=== PATIENT | female | born 1985 | race Two or more races ===

== ENCOUNTER 2018-11-22 13:49 | Inpatient (IN) | payer OTHER ==
[2018-11-22 19:33] VITALS: BMI 23.0
--- NOTE | 2018-11-22 21:07 | HP ---
Admitting History and Physical - Primary Care Physician PCP: Rui Guerra - Admission History of Present Illness: 32 years old woman with history Anxiety ?? sz Pseudoseizure Came in for elective admssion for VEEG [place] seziure was one week ago Presneted to [facility] Given Keppra No family hx of seziure History Source: Patient Limitations to Obtaining History: No Limitations - Past Medical History ...LMP: 10/31/18 ...: No - Smoking History Smoking history: Never smoked Have you smoked in the past 12 months: No - Alcohol/Substance Use Hx Alcohol Use: No Home Medications - Allergies Allergies/Adverse Reactions: Allergies Allergy/AdvReac Type Severity Reaction Status Date / Time No Known Allergies Allergy Verified 11/22/18 18:52 Family Medical History Family History: Denies Review of Systems - Review of Systems Neurological: reports: No Symptoms, Dizziness, Headache Physical Examination Vital Signs: Vital Signs Temperature 98.7 F 11/22/18 18:14 Pulse Rate 90 11/22/18 18:14 Respiratory Rate 19 11/22/18 18:14 Blood Pressure 115/70 11/22/18 18:14 O2 Sat by Pulse Oximetry (%) 99 11/22/18 19:37 Constitutional: Yes: Well Nourished Eyes: Yes: WNL Neurological: Yes: Alert, Oriented, Babinski negative, Cran Nerves II-XII Intact ...Motor Strength: WNL Problem List - Problems (1) Epilepsia Assessment/Plan: 1. seziure precautions 2. Ativan prn sz 3 .Trileptal 4. VEEG monitor Code(s): G40.909 - EPILEPSY, UNSP, NOT INTRACTABLE, WITHOUT STATUS EPILEPTICUS
[2018-11-22] MEDS ORDERED: ACETAMINOPHEN 500 MG TABLET (FP) PO PRN (21:08)
[2018-11-22 22:04] LABS: HEMATOCRIT 33.6 % (32.4-45.2); HEMOGLOBIN 11.5 GM/dL (10.7-15.3); MCH 31.7 pg (25.7-33.7); MCHC 34.4 g/dl (32.0-36.0); MEAN CELL VOLUME 92.2 fl (80-96); MEAN PLT VOLUME 6.9 fl (7.5-11.1); PLATELET COUNT 332 K/MM3 (134-434); RBC 3.64 M/mm3 (3.60-5.2); RDW 13.3 % (11.6-15.6); WHITE BLOOD COUNT 7.9 K/mm3 (4.0-10.0)
[2018-11-22] MEDS ORDERED: LORazepam 2 MG/ML SDV VIAL IVPUSH ONE ×2 (22:30→22:48)
[2018-11-22] MEDS ORDERED: LORazepam 2 MG/ML SDV VIAL ONE (22:30)
[2018-11-22 22:31] LABS: ALBUMIN 4.1 g/dl (3.4-5.0); BILIRUBIN,DIRECT 0.1 mg/dL (0.0-0.2); BILIRUBIN,TOTAL 0.1 mg/dL (0.2-1); BLOOD UREA NITROGEN 13.4 mg/dL (7-18); CALCIUM 9.3 mg/dL (8.5-10.1); CREATININE 0.7 mg/dL (0.55-1.3); TOT PROT 7.7 g/dl (6.4-8.2)
--- NOTE | 2018-11-22 22:36 | RAPID ---
Physical Examination Vital Signs: Vital Signs Temperature 98.8 F 11/22/18 22:19 Pulse Rate 85 11/22/18 22:19 Respiratory Rate 16 11/22/18 22:19 Blood Pressure 111/75 11/22/18 22:19 O2 Sat by Pulse Oximetry (%) 99 11/22/18 19:37 Labs: CBC, BMP 11/22/18 21:30 11/22/18 21:30 Rapid Response - Rapid Response Assessment: Rapid response called overhead at 10:06PM. RR team arrived immediately. On arrival patient was actively seizing, tonic clonic. #Tonic clonic seizure -2mg IV Ativan administered w/ improvement of sxs -CBC/ CMP labs from 11Pm significant only for mildly elevated glucose @ 120 -Fingerstick 94 -EKG ordered -Gentle hydration w/ D5LR @83mL/ hr -Prolactin & repeat CBC, CMP labs ordered -PCP Dr. Huertas contacted & made aware Phys Exam: Vitals On arrival #1: 120/82 HR 93 SaO2 99% #2: 134/83 HR108 SaO2 99% #3: 134/83 HR108 100%SaO2 HEENT: PERRLA. CV: S1 S2 heard no murmurs. Tachycardic RESP: CTABL Abd: Soft NTND NEURO: Decr handgrip strength. Motor strength diminished UE & LE. CN2-12 intact Extr: No edema. Pulses palpable b/l UE & LE
[2018-11-22] MEDS ORDERED: DEXTROSE 5%-LACTATED RINGERS 1,000 ML IV SCH (22:45)
[2018-11-22] MEDS: OXcarbazepine 300 MG TABLET (UD) PO SCH (23:17)
[2018-11-22 23:38] LABS: HEMATOCRIT 33.4 % (32.4-45.2); HEMOGLOBIN 11.3 GM/dL (10.7-15.3); MCH 31.5 pg (25.7-33.7); MCHC 33.9 g/dl (32.0-36.0); MEAN PLT VOLUME 6.9 fl (7.5-11.1); PLATELET COUNT 330 K/MM3 (134-434); RBC 3.59 M/mm3 (3.60-5.2); RDW 13.2 % (11.6-15.6); WHITE BLOOD COUNT 8.5 K/mm3 (4.0-10.0)
[2018-11-22 23:57] LABS: ALBUMIN 3.9 g/dl (3.4-5.0); BILIRUBIN,TOTAL 0.2 mg/dL (0.2-1); BLOOD UREA NITROGEN 15.6 mg/dL (7-18); CALCIUM 8.8 mg/dL (8.5-10.1); CREATININE 0.7 mg/dL (0.55-1.3); POTASSIUM 3.6 mmol/L (3.5-5.1); TOT PROT 7.6 g/dl (6.4-8.2)
[2018-11-23] MEDS ORDERED: PT OWN MED DRAWER 7, Y5N ONE ×4 (07:06→21:35)
[2018-11-23] MEDS: OXcarbazepine 300 MG TABLET (UD) PO SCH (09:41)
--- NOTE | 2018-11-23 11:04 | EKG ---
Test Reason : Blood Pressure : / mmHG Vent. Rate : 107 BPM Atrial Rate : 107 BPM P-R Int : 166 ms QRS Dur : 080 ms QT Int : 338 ms P-R-T Axes : 036 070 040 degrees QTc Int : 451 ms SINUS TACHYCARDIA NONSPECIFIC T WAVE ABNORMALITY ABNORMAL ECG WHEN COMPARED WITH ECG OF 22-NOV-2018 18:52, INVERTED T WAVES HAVE REPLACED NONSPECIFIC T WAVE ABNORMALITY IN INFERIOR LEADS Confirmed by JOANNA LYLE, RHIANNON ([id number]) on 11/23/2018 11:04:02 AM Referred By: Confirmed By:RHIANNON MARSHALL MD
--- NOTE | 2018-11-23 11:19 | EKG ---
Test Reason : Blood Pressure : / mmHG Vent. Rate : 081 BPM Atrial Rate : 081 BPM P-R Int : 152 ms QRS Dur : 082 ms QT Int : 364 ms P-R-T Axes : 045 063 043 degrees QTc Int : 422 ms NORMAL SINUS RHYTHM POSSIBLE LEFT ATRIAL ENLARGEMENT BORDERLINE ECG NO PREVIOUS ECGS AVAILABLE Confirmed by JOANNA LYLE, RHIANNON ([id number]) on 11/23/2018 11:19:00 AM Referred By: Confirmed By:RHIANNON MARSHALL MD
--- NOTE | 2018-11-23 17:41 | PN ---
Progress Note, Physician History of Present Illness: events noted Chart reviewed Patient yesterday had a sudden onset of feeling dizzy report of any loss of consciousness patient after that had a generalized tonic-clonic seizure at 1150. Unfortunately the machine was running and I was not able to access the machine to check for electrical correlate. - Current Medication List Current Medications: Active Medications Acetaminophen (Tylenol -) 500 mg PO Q6H PRN PRN Reason: PAIN OR FEVER Last Admin: 11/22/18 22:18 Dose: 500 mg Clonazepam (Klonopin -) 0.5 mg PO BID PRN PRN Reason: ANXIETY Oxcarbazepine (Trileptal -) 300 mg PO BID JULI Last Admin: 11/23/18 09:41 Dose: 300 mg - Objective Vital Signs: Vital Signs Temperature 98.0 F 11/23/18 14:36 Pulse Rate 93 H 11/23/18 14:36 Respiratory Rate 20 11/23/18 14:36 Blood Pressure 105/61 11/23/18 14:36 O2 Sat by Pulse Oximetry (%) 98 11/23/18 09:00 Constitutional: Yes: Well Nourished Eyes: Yes: WNL HENT: Yes: WNL Neurological: Yes: Alert, Oriented, Babinski negative ...Motor Strength: WNL Labs: CBC, BMP 11/22/18 23:08 11/22/18 23:08 Problem List - Problems (1) Epilepsia Assessment/Plan: 1. Seizure precautions. 2. Increase by mouth fluid intake. 3. Check Tegretol level. 4. Ativan when necessary seizure. Consider psych evaluation I spent over 45 minutes with the patient and the patient's family explaining the nature of the test and what happened yesterday and the adjustment of this treatment. Code(s): G40.909 - EPILEPSY, UNSP, NOT INTRACTABLE, WITHOUT STATUS EPILEPTICUS
[2018-11-23] MEDS ORDERED: LORazepam 2 MG/ML SDV VIAL ONE (18:06)
--- NOTE | 2018-11-23 18:18 | PN ---
Progress Note (short form) - Note Progress Note: Came back to see the patient again at night Upon entering patient was shaking on tomer right side Again tomer episode stopped with inhaling alcohol No Electric correlate on the EEG ativan was given Klonopin will be given at 9 add Meclizine add Zofran Problem List - Problems (1) Epilepsia Code(s): G40.909 - EPILEPSY, UNSP, NOT INTRACTABLE, WITHOUT STATUS EPILEPTICUS
[2018-11-23] MEDS ORDERED: MECLIZINE HCL 12.5 MG TABLET PO PRN (18:19)
[2018-11-23] MEDS ORDERED: ONDANSETRON 4 MG/2 ML VIAL IVPB ONE (18:20)
[2018-11-23] MEDS ORDERED: LORazepam 2 MG/ML SDV VIAL IVPUSH ONE (18:41)
[2018-11-23] MEDS: clonazePAM 0.5 MG TABLET PO PRN (21:12)
[2018-11-23] MEDS: OXcarbazepine 300 MG/5 ML 250 ML BULK BOTTLE PO SCH (21:39)
[2018-11-24] MEDS: OXcarbazepine 300 MG/5 ML 250 ML BULK BOTTLE PO SCH ×2 (09:06→21:36)
--- NOTE | 2018-11-24 15:20 | RAPID ---
Physical Examination Vital Signs: Vital Signs Temperature 98.9 F 11/24/18 14:04 Pulse Rate 90 11/24/18 14:04 Respiratory Rate 18 11/24/18 14:04 Blood Pressure 105/65 11/24/18 14:04 O2 Sat by Pulse Oximetry (%) 98 11/24/18 09:00 Labs: CBC, BMP 11/22/18 23:08 11/22/18 23:08 Rapid Response - Rapid Response Assessment: Subjective: Rapid response called at 14:59. will call order clerk team quickly responded. Team arrived to patient's room with nursing staff at bedside and patient lying in the bed awake. Per nurse, the patient was asleep and was not able to be woken for about 30 seconds then her arms began moving for an unspecified amount of time. Myoclonus resolved before team arrived. Patient felt flushed, was diaphoretic, and had a mild headache. She denies nausea and vomiting. Objective: 108/67 106 HR 99% 98.8 temp BG 80s A&Ox3, drowsy lungs CTAB heart RRR neuro intact, motor strength 5/5 in all extremities, sensation equal, CN normal no incontinence or tongue biting noted Assessment/Plan: #seizure -neuro exam unremarkable -BG -Dr. Lynne notified, pt is currently here for EEG
[2018-11-24] MEDS ORDERED: PT OWN MED DRAWER 7, Y5N ONE (21:33)
[2018-11-25] MEDS ORDERED: PT OWN MED DRAWER 7, Y5N ONE (09:22)
[2018-11-25] MEDS: OXcarbazepine 300 MG/5 ML 250 ML BULK BOTTLE PO SCH (09:27)
[2018-11-25] MEDS: clonazePAM 0.5 MG TABLET PO PRN (12:16)
[2018-11-25 15:09] VITALS: BP 104/76; PULSE 84; TEMP 98.6
--- NOTE | 2018-11-25 15:47 | PN ---
Progress Note, Physician History of Present Illness: events noted chart reviewed Alert awake oriented No seizure for the past 12 hours Results of the EEG will be obtained - Current Medication List Current Medications: Active Medications Acetaminophen (Tylenol -) 500 mg PO Q6H PRN PRN Reason: PAIN OR FEVER Last Admin: 11/22/18 22:18 Dose: 500 mg Clonazepam (Klonopin -) 0.5 mg PO BID PRN PRN Reason: ANXIETY Last Admin: 11/25/18 12:16 Dose: 0.5 mg Meclizine HCl (Antivert -) 12.5 mg PO BID PRN PRN Reason: VERTIGO Last Admin: 11/23/18 18:32 Dose: 12.5 mg Oxcarbazepine (Trileptal) 600 mg PO BID JULI Last Admin: 11/25/18 09:27 Dose: 600 mg - Objective Vital Signs: Vital Signs Temperature 98.6 F 11/25/18 13:30 Pulse Rate 84 11/25/18 13:30 Respiratory Rate 16 11/25/18 13:30 Blood Pressure 104/76 11/25/18 13:30 O2 Sat by Pulse Oximetry (%) 99 11/25/18 09:00 Constitutional: Yes: Well Nourished Eyes: Yes: WNL Neurological: Yes: Alert, Oriented, Babinski negative ...Motor Strength: WNL Labs: CBC, BMP 11/22/18 23:08 11/22/18 23:08 Problem List - Problems (1) Epilepsia Assessment/Plan: 1. Continue Trileptal 600 mg twice daily. 2. Psych evaluation as an outpatient. 3. Discharge home Code(s): G40.909 - EPILEPSY, UNSP, NOT INTRACTABLE, WITHOUT STATUS EPILEPTICUS
== END 2018-11-25 18:15 | disposition home or self-care (01) | DRG 53 ==
LOC: J4S 17:46
PROVIDERS: ADMIT Psychiatry & Neurology Neurology; ATTEND Psychiatry & Neurology Neurology
DX: G40.909 Epilepsy, unspecified, not intractable, without status epilepticus (principal); F41.9 Anxiety disorder, unspecified
CPT/HCPCS: 36415; 80048; 80053; 80076; 82962; 84146; 85027; 93005; 93010; 95951